=== PATIENT | female | born 1955 | race Caucasian/White ===

== ENCOUNTER 2017-10-15 14:53 | Outpatient (CLI) | payer BC | END 2017-10-15 14:54 | disposition home or self-care (01) | LOC: BICMAMMO 14:53 | PROVIDERS: ATTEND Obstetrics & Gynecology | DX: N63.20 Unspecified lump in the left breast, unspecified quadrant (principal) | CPT/HCPCS: 77063; 77067 ==

== ENCOUNTER 2020-06-07 15:40 | Outpatient (CLI) | payer MEDICARE | END 2020-06-07 15:41 | disposition home or self-care (01) | LOC: SCSRAD 15:40 | PROVIDERS: ATTEND Family Medicine | DX: M79.652 Pain in left thigh (principal); M25.551 Pain in right hip; M16.11 Unilateral primary osteoarthritis, right hip ==

== ENCOUNTER 2020-06-20 14:23 | Outpatient (CLI) | payer MEDICARE | END 2020-06-20 14:24 | disposition home or self-care (01) | LOC: SCSRAD 14:23 | PROVIDERS: ATTEND Family Medicine | DX: M79.652 Pain in left thigh (principal) ==

== ENCOUNTER 2020-10-11 18:25 | Emergency (ER) | payer MEDICARE ==
[2020-10-11] MEDS ORDERED: Acetaminophen 500 MG TAB ONE (18:55)
== END 2020-10-11 20:02 | disposition home or self-care (01) ==
LOC: ERS 18:25
DX: S09.90XA Unspecified injury of head, initial encounter (principal); S16.1XXA Strain of muscle, fascia and tendon at neck level, initial encounter; I10 Essential (primary) hypertension; Z79.899 Other long term (current) drug therapy; X58.XXXA Exposure to other specified factors, initial encounter
CPT/HCPCS: 70450; 70486; 72125

== ENCOUNTER 2021-10-23 14:31 | Outpatient (CLI) | payer MEDICARE, OTHER | END 2021-10-23 14:32 | disposition home or self-care (01) | LOC: SCSRAD 14:31 | PROVIDERS: ATTEND Family Medicine | DX: M25.551 Pain in right hip (principal) ==

== ENCOUNTER 2023-03-08 05:33 | Observation (INO) | payer OTHER, BC ==
[2023-03-04 10:12] VITALS: BMI 28.3
[2023-03-08] MEDS ORDERED: PROPOFOL 40 ML ONE (06:28)
[2023-03-08] MEDS ORDERED: fentaNYL PF 100 MCG/2 ML SYRINGE ONE (06:28)
[2023-03-08] MEDS ORDERED: Vancomycin 1 GM/200 ML (FROZEN) BAG ONE (06:29)
[2023-03-08] MEDS ORDERED: Sodium Chloride 0.9% 100 ML ONE ×2 (06:29→07:05)
[2023-03-08] MEDS ORDERED: Tranexamic Acid 1,000 MG/10 ML VIAL ONE (06:29)
[2023-03-08] MEDS ORDERED: Midazolam HCl 2 mg/2 ml Vial ONE (06:29)
[2023-03-08] MEDS ORDERED: Lidocaine 1% PF 5 ML VIAL ONE (06:33)
[2023-03-08] MEDS ORDERED: Bupivacaine PF 0.5% 30 ML VIAL ONE ×3 (06:36→08:28)
[2023-03-08] MEDS ORDERED: CEFAZOLIN 2 GM VIAL ONE (07:05)
[2023-03-08] MEDS ORDERED: fentaNYL 50 mcg/mL 1 mL Vial SLOW IVP PRN (07:06)
[2023-03-08] MEDS ORDERED: diphenhydrAMINE 25 MG CAP PO PRN (07:06)
[2023-03-08] MEDS ORDERED: Promethazine HCl 25 MG/ML VIAL IM PRN ×2 (07:06→08:17)
[2023-03-08] MEDS ORDERED: Acetaminophen 325 MG TAB PO PRN (07:06)
[2023-03-08] MEDS ORDERED: Ondansetron PF 4 MG/2 ML Vial IVP PRN (07:06)
[2023-03-08] MEDS ORDERED: Zolpidem Tartrate 5 MG TAB PO PRN (07:06)
[2023-03-08] MEDS ORDERED: PROPOFOL 20 ML ONE ×2 (07:36→08:35)
[2023-03-08] MEDS ORDERED: Lidocaine 1% (PF) 30 ML VIAL ONE (07:36)
[2023-03-08] MEDS ORDERED: EPINEPHrine 1 MG/ML VIAL ONE (07:36)
[2023-03-08] MEDS ORDERED: Ondansetron HCl/PF 4 MG/2 ML Vial IVP PRN (08:17)
[2023-03-08] MEDS ORDERED: HYDROmorphone 2 MG/ML VIAL SLOW IVP PRN (08:17)
[2023-03-08] MEDS ORDERED: Gabapentin 300 MG CAP PO SCH (09:00)
[2023-03-08] MEDS: Ferrous Gluconate 324 MG TAB PO SCH ×2 (11:17→21:49)
[2023-03-08] MEDS: Aspirin 81 mg Enteric Coated Tablet PO SCH ×2 (11:17→21:50)
[2023-03-08] MEDS: Fenofibrate Nanocrystallized 145 MG TAB PO SCH (11:17)
[2023-03-08] MEDS: Sodium Chloride 0.9% 1,000 ML IV SCH ×2 (11:17→17:25)
[2023-03-08] MEDS: Bisoprolol Fumarate/HCTZ 10 mg/6.25 mg Tablet PO SCH ×3 (11:17→14:08)
[2023-03-08] MEDS: Progesterone,Micronized 100 MG CAP PO SCH (11:18)
[2023-03-08] MEDS: Senokot S 8.6-50 MG TAB PO SCH ×2 (11:18→21:49)
[2023-03-08] MEDS: Montelukast Sodium 10 mg Tablet PO SCH (11:18)
[2023-03-08] MEDS: Sertraline 100 MG TAB PO SCH (11:18)
[2023-03-08] MEDS: Multivitamin W/ Minerals 1 TAB PO SCH (11:18)
[2023-03-08] MEDS: Lisinopril 20 MG TAB PO SCH ×2 (11:18→12:51)
[2023-03-08] MEDS: Gabapentin 300 MG CAP PO SCH ×2 (12:52→21:48)
[2023-03-08] MEDS: Ketorolac Tromethamine 30 MG (1 mL) VIAL IVP SCH ×2 (14:08→21:49)
[2023-03-08] MEDS: CEFAZOLIN 2 GM in Sodium Chloride 0.9% 100 ML IVPB SCH ×2 (14:08→21:47)
[2023-03-08] MEDS: HYDROcodone/Acetaminophen 10/325 mg Tablet PO PRN ×2 (18:22→21:48)
[2023-03-08] MEDS: Rosuvastatin 10 MG TAB PO SCH (21:47)
[2023-03-09] MEDS: Sodium Chloride 0.9% 1,000 ML IV SCH ×3 (03:48→23:00)
[2023-03-09 03:55] LABS: Hematocrit 29.5 % (36.0-47.0); Hemoglobin 9.7 g/dL (12.0-16.0); Mean Corpuscular HGB CONC 32.9 g/dL (32.0-36.0); Mean Corpuscular Hemoglobin 31.9 pg (27.0-31.0); Mean Platelet Volume 10.9 fL (7.4-10.4); Platelet Count 160 10x3/uL (130-400); RBC Distribution Width 13.2 % (11.5-14.5); Red Blood Cell (RBC) Count 3.04 mill/uL (4.20-5.40); White Blood Cell (WBC) Count 6.7 10x3/uL (4.8-10.8)
[2023-03-09] MEDS: HYDROcodone/Acetaminophen 10/325 mg Tablet PO PRN ×3 (06:27→14:36)
[2023-03-09] MEDS: Ketorolac Tromethamine 30 MG (1 mL) VIAL IVP SCH ×3 (06:27→21:24)
[2023-03-09] MEDS: Progesterone,Micronized 100 MG CAP PO SCH (10:07)
[2023-03-09] MEDS: Bisoprolol Fumarate/HCTZ 10 mg/6.25 mg Tablet PO SCH (10:07)
[2023-03-09] MEDS: Multivitamin W/ Minerals 1 TAB PO SCH (10:08)
[2023-03-09] MEDS: Montelukast Sodium 10 mg Tablet PO SCH (10:08)
[2023-03-09] MEDS: Sertraline 100 MG TAB PO SCH (10:08)
[2023-03-09] MEDS: Lisinopril 20 MG TAB PO SCH (10:08)
[2023-03-09] MEDS: Aspirin 81 mg Enteric Coated Tablet PO SCH ×2 (10:08→21:24)
[2023-03-09] MEDS: Ferrous Gluconate 324 MG TAB PO SCH ×2 (10:08→21:21)
[2023-03-09] MEDS: Fenofibrate Nanocrystallized 145 MG TAB PO SCH (10:09)
[2023-03-09] MEDS: Senokot S 8.6-50 MG TAB PO SCH ×2 (10:11→21:22)
[2023-03-09] MEDS: Gabapentin 300 MG CAP PO SCH ×2 (12:17→21:23)
[2023-03-09] MEDS: Rosuvastatin 10 MG TAB PO SCH (21:21)
[2023-03-10] MEDS: HYDROcodone/Acetaminophen 10/325 mg Tablet PO PRN ×2 (04:29→12:05)
[2023-03-10 04:51] LABS: Hematocrit 30.6 % (36.0-47.0); Hemoglobin 10.1 g/dL (12.0-16.0); Mean Corpuscular Hemoglobin 31.8 pg (27.0-31.0); Mean Corpuscular Volume 96.2 fl (78.0-98.0); Platelet Count 183 10x3/uL (130-400); RBC Distribution Width 13.4 % (11.5-14.5); Red Blood Cell (RBC) Count 3.18 mill/uL (4.20-5.40); White Blood Cell (WBC) Count 7.6 10x3/uL (4.8-10.8)
[2023-03-10] MEDS: Ketorolac Tromethamine 30 MG (1 mL) VIAL IVP SCH (05:53)
[2023-03-10] MEDS ORDERED: CeleCOXIB 100 MG CAP PO PRN (07:18)
[2023-03-10 08:15] VITALS: TEMP 97.7
[2023-03-10] MEDS: Ferrous Gluconate 324 MG TAB PO SCH (09:07)
[2023-03-10] MEDS: Aspirin 81 mg Enteric Coated Tablet PO SCH (09:07)
[2023-03-10] MEDS: Senokot S 8.6-50 MG TAB PO SCH (09:07)
[2023-03-10 09:08] VITALS: BP 135/58
[2023-03-10] MEDS: Multivitamin W/ Minerals 1 TAB PO SCH (09:08)
[2023-03-10] MEDS: Bisoprolol Fumarate/HCTZ 10 mg/6.25 mg Tablet PO SCH (09:08)
[2023-03-10] MEDS: Montelukast Sodium 10 mg Tablet PO SCH (09:08)
[2023-03-10] MEDS: Progesterone,Micronized 100 MG CAP PO SCH (09:08)
[2023-03-10] MEDS: Sertraline 100 MG TAB PO SCH (09:08)
[2023-03-10] MEDS: Lisinopril 20 MG TAB PO SCH (09:08)
[2023-03-10] MEDS: Fenofibrate Nanocrystallized 145 MG TAB PO SCH (09:09)
[2023-03-10] MEDS: Gabapentin 300 MG CAP PO SCH (12:06)
== END 2023-03-10 14:08 | disposition home or self-care (01) ==
LOC: SDC 05:33 → SURG A 07:09
PROVIDERS: ADMIT Orthopaedic Surgery; ATTEND Orthopaedic Surgery
PROC: 0SR90JZ Replacement of Right Hip Joint with Synthetic Substitute, Open Approach (ICD-10-PCS; principal; 2023-03-08)
DX: M16.11 Unilateral primary osteoarthritis, right hip (principal); J30.2 Other seasonal allergic rhinitis; I10 Essential (primary) hypertension; F32.A Depression, unspecified; M19.90 Unspecified osteoarthritis, unspecified site; E78.00 Pure hypercholesterolemia, unspecified; Z98.41 Cataract extraction status, right eye; Z98.42 Cataract extraction status, left eye; Z87.891 Personal history of nicotine dependence; Z79.899 Other long term (current) drug therapy
CPT/HCPCS: 27130; 73502; 85027 ×2; 96365; 96375 ×2; 96376 ×3; 97110 ×3; 97116 ×3; 97530 ×3; 97535; C1776; G0378 ×3; J0171; J3370; 36415; J1885; J2001; J2250; J2405; J2704; J3490; S0020